=== PATIENT | female | born 1965 | race Caucasian/White ===

== ENCOUNTER 2017-01-31 07:11 | Emergency (ER) | payer OTHER ==
[~2017-01-31] VITALS: Ht 147.3 cm; Wt 49.9 kg
--- NOTE | 2017-01-31 09:08 | ED HEADACHE COMPLAINT ---
History of Present Illness General Chief Complaint: Headache Stated Complaint: MIGRAINE Source: patient, old records Exam Limitations: no limitations Vital Signs & Intake/Output Vital Signs & Intake/Output Vital Signs Date Time Temp Pulse Resp B/P B/P Pulse O2 O2 Flow FiO2 Mean Ox Delivery Rate 01/31 0909 97.1 57 16 116/67 99 Room Air 01/31 0713 97.8 76 18 160/74 99 Room Air Allergies Coded Allergies: pseudoephedrine (From SUDAFED) (Mild, FEVER 01/31/17) Triage Note: PT STTAES THAT SHE HAS A HISTORY OF MIGRAINES AND THAT SHE HAS HAD A HEADACHE SINCE YESTERDAY, WENT TO WALK IN AND THEY GAVER HER IMITREX AND TOLD HER TO TAKE TYLENOL , CLARITON AND SLEPT ALL DAY. WOKE THIS AM STILL COMPLAINS OF DE DIOS. STATES THAT PAIN IS BEHIND L EYE AND RADIATES INTO HER HEAD Triage Nurses Notes Reviewed? yes Onset: 3 days Duration: day(s):, constant, continues in ED Timing: recent history Quality/Severity: severe, constant, throbbing Head Injury Location: temporal, parietal No Modifying Factors: none Associated Symptoms: weakness LMP (ages 10-50): post menopausal : No Patient currently breastfeeds: No HPI: 3 days prior to admission patient complains of left-sided headache throbbing moderate to severe constant nonradiating associated with nausea. She denies fever chills chest pain cough shortness of breath dysuria rash bleeding change in motor sensory function change in bowel bladder habit. Past History Travel History Traveled to [place] past 21 day No Medical History Any Pertinent Medical History? 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 No Review of Systems Review of Systems Constitutional: Reports: see HPI, malaise. Eyes: Reports: no symptoms. Ears, Nose, Throat, Mouth: Reports: no symptoms. Respiratory: Reports: no symptoms. Cardiovascular: Reports: no symptoms. Gastrointestinal/Abdominal: Reports: see HPI, nausea. Genitourinary: Reports: no symptoms. Musculoskeletal: Reports: no symptoms. Skin: Reports: no symptoms. Neurological/Psychological: Reports: see HPI, headache. Hematologic/Endocrine: Reports: no symptoms. Endocrine: Reports: no symptoms. Immunologic/Allergic: Reports: no symptoms. All Other Systems: Reviewed and Negative Physical Exam Physical Exam General Appearance: well developed/nourished, alert, awake, anxious, moderate distress, thin Head: atraumatic, normal appearance Eyes: Bilateral: normal appearance, PERRL, EOMI. Ears, Nose, Throat: normal pharynx, normal ENT inspection Neck: normal inspection, supple, full range of motion, trachea midline Respiratory: normal breath sounds, chest non-tender, no respiratory distress, quiet respiration, lungs clear Cardiovascular: regular rate/rhythm, normal peripheral pulses, norml femoral pulses equa Gastrointestinal: normal bowel sounds, soft, non-tender, no organomegaly Back: normal inspection, normal range of motion Extremities: normal inspection, normal capillary refill, normal range of motion, no edema Psychiatric: awake, alert, oriented x 3 Cranial Nerves: normal hearing, normal speech, PERRL Coordination/Gait: normal finger to nose, normal gait Motor/Sensory: no motor/sensory deficits Reflexes: 2+: bicep (R), bicep (L). Skin: intact, normal color, warm/dry Lymphatic: no anterior cervical romelia Core Measures Severe Sepsis Present: No Septic Shock Present: No Progress Differential Diagnosis: migraine DE DIOS, tension DE DIOS, viral cephalgia Plan of Care: analgesia Departure Departure Time of Disposition: 925 Disposition: HOME OR SELF CARE Condition: Stable Clinical Impression Primary Impression: Migraine-cluster headache syndrome Referrals: LOBITO BROOKS DO (PCP/Family) Departure Forms: Customer Survey General Discharge Information RELEASE- WORK Prescriptions: Current Visit Scripts Butalb/Acetaminophen/Caffeine (Fioricet 50-300-40 MG Capsule) 1-2 TAB PO Q6P PRN headache #30 TAB Ondansetron (Zofran Odt) 1 TAB SL TID PRN nausea #10 TAB
[2017-01-31 09:09] VITALS: BP 116/67
[2017-01-31] MEDS ORDERED: FIORICET 50-301 EACH PO (09:27)
[2017-01-31] MEDS ORDERED: ZOFRAN ODT4 M1 SL (09:27)
== END 2017-01-31 09:36 ==
LOC: ERH 07:11
DX: G43.909 Migraine, unspecified, not intractable, without status migrainosus (principal); G44.009 Cluster headache syndrome, unspecified, not intractable
CPT/HCPCS: 96365; 96375; J1885; J2765

== ENCOUNTER 2018-01-31 18:22 | Emergency (ER) | payer OTHER ==
[~2018-01-31] VITALS: Ht 147.3 cm; Wt 48.1 kg
[~2018-01-31 18:22] MED LIST: FIORICET 50-301 EACH PO; ZOFRAN ODT4 M1 SL
--- NOTE | 2018-01-31 18:43 | ED CARDIAC/CP/PALPITATIONS ---
History of Present Illness General Chief Complaint: Chest Pain Stated Complaint: SENT BY URGENT CARE FOR CP Source: patient Exam Limitations: no limitations Vital Signs & Intake/Output Vital Signs & Intake/Output Vital Signs Date Time Temp Pulse Resp B/P B/P Pulse O2 O2 Flow FiO2 Mean Ox Delivery Rate 01/31 2230 98.1 57 18 102/63 98 Room Air 01/31 2138 98.3 53 18 109/62 98 Room Air 01/31 1906 98 Room Air 01/31 1831 98.3 76 20 125/74 98 Room Air Allergies Coded Allergies: pseudoephedrine (From MedrioAFELegal Egg) (Mild, FEVER 01/31/17) Reconcile Medications Butalb/Acetaminophen/Caffeine (Fioricet 50-300-40 MG Capsule) 50 MG-300 MG-40 MG CAPSULE 1-2 TAB PO Q6P PRN headache Ondansetron (Zofran Odt) 4 MG TAB.RAPDIS 1 TAB SL TID PRN nausea Triage Note: PT SENT BY URGENT CARE FOR CHEST PAIN X 2 DAYS. CONSTANT PAIN, WORSE YESTERDAY. WAS WATCHING TV WHEN THE PAIN STARTED 2 DAYS AGO. "I THINK IT'S ANXIETY". C/O NAUSEA, DENIES V/D. EKG DONE. PT HAS EKG WITH HER FROM URGENT CARE. Triage Nurses Notes Reviewed? yes Onset: Gradual Duration: day(s): Timing: recent history Quality/Severity: moderate, pressure, sharp Location: substernal Radiation: no radiation HPI: 52-year-old female with history of hypertension, anxiety, depression presents emergency department sent in by urgent for chest pain. Patient states she has had chest pressure for the past 4 years which she attributes to anxiety. Patient states that yesterday evening while she was watching television she developed a stabbing chest pain described as substernal, 01/13. Chest pain continued into today intermittently. Patient states that this chest pain is new compared to her previous chest pain. He has never seen a spice miller or any doctor regarding chest pain in the past. She has associated dyspnea and nausea with her chest pain. Patient denies syncope, abdominal pain, vomiting. (Hope CARREON,Gem Barger) Past History Travel History Traveled to [place] past 21 day No Medical History Any Pertinent Medical History? 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 No (Gem Rodriguez) Review of Systems Review of Systems Constitutional: Reports: no symptoms. EENTM: Reports: no symptoms. Respiratory: Reports: see HPI. Cardiovascular: Reports: see HPI. GI: Reports: see HPI. Genitourinary: Reports: no symptoms. Musculoskeletal: Reports: no symptoms. Skin: Reports: no symptoms. Neurological/Psychological: Reports: no symptoms. Hematologic/Endocrine: Reports: no symptoms. Immunologic/Allergic: Reports: no symptoms. All Other Systems: Reviewed and Negative (Gem Rodriguez) Physical Exam Physical Exam General Appearance: well developed/nourished, no apparent distress, alert, awake Head: atraumatic, normal appearance Eyes: Bilateral: normal appearance. Ears, Nose, Throat: hearing grossly normal Neck: normal inspection, supple, full range of motion Respiratory: normal breath sounds, chest non-tender, no respiratory distress, lungs clear Cardiovascular: regular rate/rhythm, normal peripheral pulses Peripheral Pulses: 2+ radial (R), 2+ radial (L) Gastrointestinal: normal bowel sounds, soft, non-tender, no organomegaly Back: normal inspection, normal range of motion Extremities: normal inspection, normal range of motion Neurologic/Psych: awake, alert, oriented x 3 Skin: intact, normal color, warm/dry Core Measures ACS in differential dx? Yes CVA/TIA Diagnosis No Sepsis Present: No Sepsis Focused Exam Completed? No (Gem Rodriguez) Progress Differential Diagnosis: AMI, atrial fibrillation, CHF/pulm edema, hyperventilation, musculoskeletal pain, myocarditis, pericarditis, pneumonia, pneumothorax, pulmonary embolism, PUD/GERD, unstable angina Plan of Care: Orders Procedure Date/time Status TROPONIN LEVEL 01/31 2145 Complete EKG 01/31 2145 Active TROPONIN LEVEL 01/31 182 Complete COMPREHENSIVE METABOLIC PANEL 01/31 1826 Complete CBC WITHOUT DIFFERENTIAL 01/31 1826 Complete EKG 01/31 182 Active Laboratory Tests 01/31/189: Troponin I < 0.01 01/31/181845: Anion Gap 12, Estimated GFR > 60, BUN/Creatinine Ratio 21.7, Glucose 98, Calcium 9.9, Total Bilirubin 0.3, AST 18, ALT 23, Alkaline Phosphatase 69, Troponin I < 0.01, Total Protein 7.5, Albumin 4.4, Globulin 3.1, Albumin/Globulin Ratio 1.4, CBC w Diff NO MAN DIFF REQ, RBC 4.32, MCV 91.6, MCH 31.1 H, MCHC 34.0, RDW 13.0 , MPV 6.6 L, Gran % 50.8, Lymphocytes % 42.1, Monocytes % 6.4, Eosinophils % 0.3, Basophils % 0.4, Absolute Granulocytes 5.2, Absolute Lymphocytes 4.3 H, Absolute Monocytes 0.7 H, Absolute Eosinophils 0, Absolute Basophils 0 Chest x-ray was within normal limits. Troponin enzyme is negative. Patient's labs are stable. The patient is sitting in the stretcher in no acute distress. Given new chest pain will obtain repeat EKG and troponin. The patient agrees with this plan. The patient was signed out to Dr. Jack pending repeat EKG and troponin. Diagnostic Imaging: Viewed by Me: Radiology Read. Discussed w/RAD: Radiology Read. Initial ED EKG: SINUS RHYTHM @66BPM, NONSPECIFIC ST CHANGES Hand-Off Endorsed To: Rene Jack MD Endorsed Time: 1999 Pending: EKG, labs Comments: PATIENT: RYAN DC PRESENT AGE: 52 PATIENT ACCOUNT NO: [id number] : 64 LOCATION: [facility] ORDERING PHYSICIAN: Gem CARREON SERVICE DATE: 01/31/18 EXAM TYPE: RAD - XRY-CHEST XRAY, TWO VIEWS EXAMINATION: PA/lateral chest radiograph CLINICAL INFORMATION: Chest pain COMPARISON: None available. TECHNIQUE: 2 views of the chest were obtained. FINDINGS: Lungs are hyperinflated. There is no focal consolidation, pleural effusion, or pneumothorax. Cardiac silhouette size is normal. There are no acute osseous findings. Surgical clip within the right neck. IMPRESSION: No acute pulmonary process. DICTATED BY: Matt Perdue MD DATE/TIME DICTATED:01/31/181919 CUSTOMS AND IMMIGRATION OFFICER:PAU DATE/TIME TRANSCRIBED:01/31/181919 CONFIDENTIAL, DO NOT COPY WITHOUT APPROPRIATE AUTHORIZATION. <Electronically signed in Other Vendor System> SIGNED BY: Matt Perdue MD 01/31/181924 (Gem Rodriguez) Repeat EKG: changed Rhythm Strip: normal sinus rhythm Comments: 2nd troponin negative. EKG without ischemia. (Guero ESTEVEZ,) Departure Departure Condition: Stable Clinical Impression Primary Impression: Chest pain Qualifiers: Chest pain type: unspecified Qualified Code: R07.9 - Chest pain, unspecified Referrals: Martha Pro DO (PCP/Family) Adalberto ESTEVEZ,Nestor Parisi Additional Instructions: Follow-up with the spice miller, call to make an appointment. Return with worsening symptoms or concerns including increasing chest pain, shortness of breath, feeling is that you're going to pass out. Please note that there might be incidental findings in your evaluation that are unrelated to the current emergency department visit. Please notify your primary care doctor about this emergency department visit in order to obtain and review all of the testing performed so that these incidental findings can be monitored as needed. If you had an x-ray performed, please understand that some fractures may not be seen on the initial set of x-rays. If your symptoms persist you might need a repeat set of x-rays to check for such a fracture. If you had a laceration evaluated, please understand that foreign bodies such as glass or wood may not be visible to the naked eye or on plain x-rays. If the wound becomes red, swollen, increasingly more painful or if there is any drainage from the wound, please have it reevaluated by a physician for the possibility of a retained foreign body. If you're unable to follow up as outlined in the discharge instructions please return to the emergency department. Thank you for choosing the [facility] Emergency Department for your care. It was a pleasure to serve you today. Departure Forms: Customer Survey General Discharge Information (Gem Rodriguez) Departure Time of Disposition: 2233 Disposition: HOME OR SELF CARE PA/MAINTENANCE ANALYST Co-Sign Statement Statement: ED Attending supervision documentation- x I saw and evaluated the patient. I have also reviewed all the pertinent lab results and diagnostic results. I agree with the findings and the plan of care as documented in the PA's/MAINTENANCE ANALYST's documentation. [] I have reviewed the ED Record and agree with the PA's/MAINTENANCE ANALYST's documentation. [] Additions or exceptions (if any) to the PAs/MAINTENANCE ANALYST's note and plan are summarized below: [] (Guero ESTEVEZ,) Critical Care Note Critical Care Note Critical Care Time: non-applicable (Hope CARREON,Gem Barger)
[2018-01-31 19:08] LABS: ABSOLUTE BASOPHIL COUNT 0 /CUMM (0.0-0.2); ABSOLUTE EOSINOPHIL COUNT 0 /CUMM (0.0-0.7); ABSOLUTE GRANULOCYTE CT 5.2 /CUMM (1.4-6.5); ABSOLUTE LYMPH COUNT 4.3 /CUMM (1.2-3.4); ABSOLUTE MONOCYTE COUNT 0.7 /CUMM (0.10-0.60); BASOPHIL % 0.4 % (0.0-2.0); EOSINOPHIL % 0.3 % (0-5); GRANULOCYTE % 50.8 % (42.2-75.2); HEMATOCRIT 39.5 % (37-47); MEAN CORPUSCULAR HGB 31.1 PG (27.0-31.0); MEAN CORPUSCULAR VOLUME 91.6 FL (81.0-99.0); MEAN PLATELET VOLUME 6.6 FL (7.4-10.4); PLATELET COUNT 409 /CUMM (130-400); RED BLOOD CELL CT 4.32 /CUMM (4.20-5.40); WHITE BLOOD CELL COUNT 10.3 /CUMM (4.8-10.8)
--- NOTE | 2018-01-31 19:25 | RADIOLOGY REPORT ---
EXAMINATION: PA/lateral chest radiograph CLINICAL INFORMATION: Chest pain COMPARISON: None available. TECHNIQUE: 2 views of the chest were obtained. FINDINGS: Lungs are hyperinflated. There is no focal consolidation, pleural effusion, or pneumothorax. Cardiac silhouette size is normal. There are no acute osseous findings. Surgical clip within the right neck. IMPRESSION: No acute pulmonary process.
[2018-01-31 22:30] VITALS: BP 102/63
== END 2018-01-31 23:07 ==
LOC: ERH 18:22
PROVIDERS: Physician Assistant
DX: R07.89 Other chest pain (principal)
CPT/HCPCS: 71046; 93005; 93010